=== PATIENT | male | born 1965 | race Caucasian/White ===

== ENCOUNTER → 2020-10-30 16:42 | Outpatient (CLI) | payer OTHER, SELFPAY ==
--- NOTE | 2020-10-30 | DI.MRI.S_ITS ---
PROCEDURE: MR SHOULDER RT WO CON INDICATIONS: Pain in right shoulder TECHNIQUE: Noncontrast oblique coronal T2 fast spin echo with fat saturation, oblique sagittal T1 spin echo and T2 fast spin echo with fat saturation, axial T1 spin echo and T2 fast spin echo with fat saturation through the shoulder. COMPARISON: [facility], , LEFT SHOULDER WITH CONTRAST, 03/02/2017, 13:23. FINDINGS: Image quality: Excellent. Rotator cuff: There is mild tendinopathy in the supraspinatus without a discrete tear. The infraspinatus also appears intact. There is also mild tendinopathy in the distal subscapularis with minimal partial tearing at its insertion. The teres minor appears intact. Sagittal images demonstrate no fatty muscle atrophy. Bones and bursae: No bone marrow contusions or fractures. There is moderate acromioclavicular joint degeneration including periarticular bone marrow edema in the distal clavicle. The acromion demonstrates slight lateral downsloping, without an os acromiale. Trace subacromial/subdeltoid bursal fluid is present. There is a small glenohumeral joint effusion. Capsule and soft tissues: There is mild degenerative tearing within the posterosuperior and posterior labrum as well as the anteroinferior labrum. The glenohumeral ligaments appear intact. The long head of the biceps tendon demonstrates normal location with mild segmental tendinopathy proximally.. The rotator interval appears normal, without fibrosis. The coracohumeral ligament is normal in thickness. IMPRESSION: 1. Mild tendinopathy in the distal subscapularis with minimal partial tearing at its insertion. Rotator cuff otherwise appears intact. 2. Moderate acromioclavicular joint degeneration with trace subacromial/subdeltoid bursal fluid. 3. Mild degenerative tearing in the labrum as described. Dictated by: Victor Manuel Gruber M.D. on 10/31/2020 at 9:33 Approved by: Victor Manuel Gruber M.D. on 10/31/2020 at 9:38
== END ==
PROVIDERS: Referring Provider Family Medicine; Visit Provider Family Medicine
DX: M25.511 Pain in right shoulder (principal); M19.011 Primary osteoarthritis, right shoulder; M75.111 Incomplete rotator cuff tear or rupture of right shoulder, not specified as traumatic; S43.491A Other sprain of right shoulder joint, initial encounter
CPT/HCPCS: 73221

== ENCOUNTER → 2020-12-18 09:14 | Outpatient (CLI) | payer OTHER, SELFPAY ==
[2020-12-18 12:11] LABS: COVID19 -Nasal RAPID Negative (Negative)
== END ==
PROVIDERS: Visit Provider Nurse Practitioner
DX: Z20.822 Contact with and (suspected) exposure to COVID-19 (principal)
CPT/HCPCS: 87635

== ENCOUNTER 2020-12-19 06:17 | Day surgery (SDC) | payer OTHER, SELFPAY ==
[2020-12-13 11:55] VITALS: BMI 27.3
[2020-12-19] VITALS (8 sets, daily range): BP systolic 120–142; BP diastolic 59–88; PULSE 60–73; RESP 14–22; TEMP 36.1–36.2; O2SAT 94–95; BMI 27.8
[2020-12-19] MEDS: CELECOXIB 200 MG CAPSULE 400 MG PO (06:55)
[2020-12-19] MEDS: ACETAMINOPHEN 325 MG TABLET 975 MG PO (06:55)
[2020-12-19] MEDS: GABAPENTIN 300 MG CAPSULE PO (06:55)
[2020-12-19] MEDS: LACTATED RINGERS 1,000 ML 42 ML IV (06:55)
--- NOTE | 2020-12-19 07:34 | PM.PREOP ---
Pre-operative Note Interval Note History & Physical reviewed/Exam performed by Physician: Yes Changes to H&P: No
--- NOTE | 2020-12-19 07:55 | SUR.PREOP ---
0740 -Monitoring initiated and maintained throughout procedure. Placed on 2LNC. Medications given per Dr Stahl. 0750 - Time out performed by Dr Stahl. 0753 - Injection time. 0754 - Block complete. Patient remained stable throughout procedure. No adverse reactions noted. see rhythm strips and VS strip.
--- NOTE | 2020-12-19 08:04 | PM.HP.1 ---
History of Present Illness History of Present Illness Date Patient Seen: 12/19/20 Time Patient Seen: 07:30 Chief complaint: SDC Narrative: 55-year-old gentleman with a long history of right shoulder pain that has been unresponsive to conservative treatment. Patient History Medical History Arthritis of right acromioclavicular joint Partial tear of right rotator cuff Subacromial impingement of right shoulder Tendinopathy of right shoulder Surgical History Hx of colonoscopy (07/29/15) Family & Social History Social History: household members spouse Tobacco & Substance use: Smoking Status Former smoker alcohol intake frequency a few times a month Substance Use Type does not use Meds Home Medications and Allergies Home Medications Medication Instructions Recorded Confirmed Type multivitamin 1 tab PO DAILY #0 03/11/12 12/19/20 History Allergies Allergy/AdvReac Type Severity Reaction Status Date / Time No Known Drug Allergies Allergy Verified 12/19/20 06:33 Exam Vital Signs (past 8 hours): - 12/19/20 06:39 12/19/20 06:55 Temperature 97.2 F L 97.2 F L Pulse Rate 66 Respiratory Rate 16 Blood Pressure 140/88 Pulse Oximetry 95 Oxygen Delivery Method Room Air Narrative Exam Narrative: Patient has difficulty with range of motion of the shoulder. Has pain going beyond 90?. Passively has full range of motion of the shoulder with no sign of any contractures. Patient has pain and weakness in supraspinatus strength testing. Positive impingement signs. Tender to palpation over the AC joint with signs of arthritic changes. No sign of any shoulder instability no sign of any proximal biceps pathology. Assessment & Plan Assessment & Plan narrative: Patient with right shoulder pain unresponsive to conservative treatment. Patient is interested in proceeding with an arthroscopic procedure to address the impingement, AC joint arthritis, as well as the rotator cuff partial tearing and pathology. Patient fully understands the risk and limitations associated with the surgery all of his questions and concerns for Mikayla were answered to his full satisfaction. Time Spent With Patient Time with patient: less than 15 minutes
[2020-12-19] MEDS: CEFAZOLIN 1 GM VIAL 2 GM IV (08:11)
--- NOTE | 2020-12-19 08:14 | PM.PROC.1 ---
Procedures Date/Time Date of procedure: 12/19/20 Time of procedure: 07:50 Nerve Block Time out performed: Yes Local anesthetic used: bupivacaine 0.5% Location of anesthetic used: RIGHT Amount of anesthesia used (mL): 13 Nerve blocks: brachial plexus (intrascalene) Procedure successful: Yes Patient tolerated procedure: well and no complications Complications: none Additional comments: Intrascalene block performed for post-op pain control at surgeon request. Patient was positioned with IV, O2, monitors and rescue meds available. Prepped and timeout performed. Target identified with continuous ultrasound guidance. 13mL of bupivicaine 0.5% was injected perineurally with intermittent aspiration and injection. No blood, no paresthesias, no acute complications.
--- NOTE | 2020-12-19 08:29 | SUR.OPER ---
Beach chair with Maquet shoulder positioner. Lower body on padded OR bed. Head in foam padded head cradle, secured with straps. Non-operative arm secured <90 degrees abduction. Pillow under knees. Safety belt at thigh. Cloth tape over blanket over lower legs.
[2020-12-19] MEDS: SODIUM CHLORIDE IRRIG SOLUTION 3,000 ML, EPINEPHrine 1 MG IRR (08:37)
[2020-12-19] MEDS: LIDOCAINE 1% W/EPI 20 ML INJ (08:38)
--- NOTE | 2020-12-19 09:43 | PM.OP.1 ---
Operative Date/Time/Diagnoses Date of procedure: 12/19/20 Time of procedure: 08:00 Pre-op diagnosis: Right shoulder impingement, AC joint arthritis, glenohumeral joint arthritis, partial rotator cuff tear Post-op diagnosis: same Procedure & Clinicians Procedure: Right shoulder subacromial decompression, extensive debridement, debridement of partial rotator cuff tear, distal clavicle excision Same procedure as scheduled: Yes Indications: Right shoulder impingement with partial rotator cuff tear with AC joint and glenohumeral joint arthritis Surgeon: Nico Hernandez Aircraft Mechanic Armament: Latoya Zamudio Anesthesia Type: General and Peripheral nerve block Operative Notes Findings: Significant loss of cartilage to the humeral head with full-thickness cartilage loss affecting more the posterior aspect of the humeral head. No sign of any full-thickness cartilage loss involving the glenoid. No sign of any significant articular surface partial tearing to the rotator cuff. Degenerative tearing throughout the labrum. No sign of any extension into the bicipital anchor or signs of proximal biceps tenosynovitis or tearing. Subscapularis free of any signs of articular sided tearing or fraying. No signs of any loose bodies. But some loose cartilage flaps coming off the humeral head. Subacromial space had a significant amount of bursitis and synovitis. Quite a bit of fraying throughout the entire rotator cuff but no sign of any high-grade partial tears or full-thickness tears. Large impingement lesions coming off the subacromial arch as well as AC joint arthritis. Closure Type: primary Specimen(s): none sent Estimated Blood Loss (mL): 5 Procedure in detail: On date of service, Patient was met in the holding area. The operative site was signed and witnessed by the OR staff. The surgeries once again discussed with the patient and any remaining questions they had were answered fully. Patient was taken back to the operating theater and placed on the operating table in a supine position. Great care was taken to ensure that all bony prominences were properly padded. Patient was then placed into the beach chair position. The head and neck were properly positioned and secured. A timeout was performed verifying patient's name, procedure, and the operative site. The upper extremity was then prepped and draped in the normal sterile fashion. Previously, the bony anatomy and portal sites were marked out as well as injected with Marcaine with epinephrine. An 11 blade was used to make an incision in the posterior aspect of the shoulder. The camera was placed, and a diagnostic shoulder scope was performed. Findings listed above. Next under direct visualization, a anterior portal was made. Shaver was placed into the anterior portal and a extensive debridement of the glenohumeral joint was performed. Shaver was used to debride the degenerative changes throughout the labrum as well as a type 1 slap tear. Shaver was used to remove some of the loose cartilage flaps coming off the posterior aspect of the humeral head. Also used to debride the area of full-thickness cartilage loss in order to encourage healing of that bare area. Next the camera was placed into the subacromial space. A lateral portal was obtained under direct visualization. A combination of the shaver and vapor wand, a debridement of the inflamed tissue as well as inflamed bursa was performed. The lateral gutter was also cleaned out. This gave us good visualization of the bursal aspect of the rotator cuff as well as the acromial arch. There was an obvious impingement lesion in the acromial arch. Next we turned our attention to the subacromial decompression. Next, a alon was then used to do a subacromial decompression. This allowed us to convert the acromion to a type I acromial. This also allowed us to shave down the bony lesion in the acromial space. The rasp was placed into the lateral portal as well as the anterior portal in order to do a complete subacromial decompression. We next turned our attention to the distal clavicle. Using the shaver and the vapor wand we were able to clean out all the soft tissue around the distal clavicle as well as into the a.c. joint. This gave us good visualization of the arthritic changes to the distal clavicle as well as good visualization of the inferior osteophytes coming off the distal clavicle. Using the alon in the anterior portal, we were able to remove the inferior osteophytes as well as do a distal clavicle excision removing 3-4 mm of bone. The camera was then placed into the anterior portal which gave us a direct visualization of the a.c. joint allowing us to assess the distal clavicle excision. We then turned our attention to the rotator cuff tear. Shaver was used to debride once again any fraying or partial tearing to the bursal aspect of the rotator cuff. Also used to remove any remaining synovitis and inflamed bursal tissue. The shoulder was then taken through range of motion and there was no sign of any additional impingement. Patient's shoulder was then cleaned dried and dressed and patient was taken to the PACU in stable condition. Post-operative Condition: stable Disposition: PACU Plan for aftercare: Patient will be discharged home in the sling. Sling is just for comfort. No restrictions of range of motion
[2020-12-19] MEDS: ONDANSETRON 4 MG/2 ML INJ IV (09:47)
--- NOTE | 2020-12-19 09:48 | SUR.PHASEI ---
Received to PACU after general anesthesia. Airway patent, self maintained. Report from RUTHY Carty and Dr Stahl.
== END 2020-12-19 10:42 | disposition home or self-care (01) ==
PROVIDERS: PCP Family Medicine; Referring Provider Orthopaedic Surgery; Visit Provider Orthopaedic Surgery
PROC: (CPT 29805; principal; 2020-12-19 07:45)
DX: M75.41 Impingement syndrome of right shoulder (principal); M19.011 Primary osteoarthritis, right shoulder; M75.111 Incomplete rotator cuff tear or rupture of right shoulder, not specified as traumatic; M75.51 Bursitis of right shoulder; M65.811 Other synovitis and tenosynovitis, right shoulder; S43.431A Superior glenoid labrum lesion of right shoulder, initial encounter; K21.9 Gastro-esophageal reflux disease without esophagitis; M25.711 Osteophyte, right shoulder
CPT/HCPCS: 29823; 29824; 29826; 64450; J0171; J0330; J0690; J1100; J2250; J2405; J2704; J3010

== ENCOUNTER → 2021-06-26 11:58 | Outpatient (CLI) | payer OTHER, SELFPAY ==
--- NOTE | 2021-06-26 | DI.ECHO.S_ITS ---
[facility] +---------+ : : [address] [place] : : : : [id number] : : : : Phone: [phone]+ Echocardiogram Report + + :Name: ELIESER ESCOBEDO Study Date: 06/26/2021 Height: 67.5 in: :[facility] ReadingLocation: Weight: 180 lb : : Gender: Male BSA: 1.9 m2 : :: 1965 Age: 56 yrs BP: 133/88 mmHg: :Reason For Study: Chest pain : :Ordering Physician: : :MIGUEL Performed By: Dayton Perez : :Referring: DANK HENDRIX : + + Interpretation Summary 1) Normal left ventricular size, thickness, and systolic function (EF 60-65%). 2) There are no obvious focal wall motion abnormalities noted but poor endocardial definition reduces the sensitivity for the detection of such. 3) Normal right ventricular size and function. 4) No significant valvular abnormalities. 5) Compared to the Echo done 05/28/2016, no significant change. Procedure: A two-dimensional transthoracic echocardiogram with color flow and Doppler was performed. The study quality was technically adequate. The subcostal views were difficult to obtain and are suboptimal in quality. Comparison is made with the echocardiogram of 05/28/2016. The patient was in normal sinus rhythm during the exam. Left Ventricle: The left ventricle is normal in size and wall thickness. The ejection fraction is estimated to be 60-65%. There are no obvious focal wall motion abnormalities noted but poor endocardial definition reduces the sensitivity for the detection of such. Right Ventricle: The right ventricle is normal in size and function. Atria: Both atria are normal in size. Mitral Valve: The mitral valve leaflets appear borderline thickened, but open well. There is trace mitral regurgitation. Aortic Valve: The aortic valve is trileaflet. The aortic valve opens well. There is no aortic valve stenosis. There is trace aortic regurgitation. Tricuspid Valve: The tricuspid valve is normal. There is a trace or physiologic amount of tricuspid regurgitation. Pulmonary artery pressures cannot be estimated because of the lack of a measurable TR jet velocity but the IVC suggests a CVP of around 3 mmHg. Pulmonic Valve: The pulmonic valve leaflets are thin and pliable; valve motion is normal. There is trace pulmonic regurgitation. Great Vessels: The aortic root is normal size. The ascending aorta is normal in size. The aortic arch is normal in size. The IVC is of normal diameter and collapses greater than 50% with a sniff. This suggests a low right atrial pressure of 3 mm Hg. Pericardium/ Pleura There is no pericardial effusion. There is no pleural effusion. MMode/2D Measurements & Calculations LVIDd: 4.7 cm LVOT diam: 1.8 cm LVIDs: 2.7 cm Ao root diam: 2.8 cm FS: 42.6 % asc Aorta Diam: 3.4 cm IVSd: 0.70 cm Ao Arch Diam (Prox Trans): 2.3 cm LVPWd: 0.90 cm LV lawson. diameter/BSA (cm/m^2): 2.4 LV sys. diameter/BSA (cm/m^2): 1.4 LA A2 area: 18.6 cm2 RA long axis: 5.2 cm LA A4 area: 12.7 cm2 IVC diam: 1.4 cm LA length (vol): 5.9 cm LA vol: 33.9 ml LA vol index: 17.4 ml/m2 LVLs ap4: 5.8 cm LVLd ap2: 7.5 cm LVLs ap2: 5.7 cm TAPSE_phl: 2.7 cm Doppler Measurements & Calculations Ao V2 max: 119.0 cm/sec LVOT Max Jassi: 127.0 cm/sec Ao V2 mean: 77.2 cm/sec LV V1 max P.5 mmHg Ao max P.0 mmHg LV V1 VTI: 25.1 cm Ao mean P.0 mmHg HERMINIO(I,D): 2.7 cm2 Ao V2 VTI: 23.6 cm HERMINIO(V,D): 2.7 cm2 sev ratio: 1.1 HERMINIO indexed to BSA (cm^2/m^2): 1.4 MV E max jassi: 61.8 cm/sec SV(LVOT): 63.9 ml MV A max jassi: 52.5 cm/sec MV E/A: 1.2 Med Peak E' Jassi: 8.6 cm/sec E/E' med: 7.2 Lat Peak E' Jassi: 11.6 cm/sec E/E' lat: 5.3 E/e' average: 6.3 MV dec time: 0.13 sec AV VR_phl: 1.1 MV P1/2t-pr_phl: 39.0 msec HERMINIO(VTI)/BSA_phl: 1.4 Reading Physician:04:12 PM
== END ==
PROVIDERS: PCP Family Medicine; Referring Provider Family Medicine; Visit Provider Family Medicine
DX: R07.9 Chest pain, unspecified (principal)
CPT/HCPCS: 93306

== ENCOUNTER → 2024-10-05 07:46 | Outpatient (CLI) | payer OTHER, SELFPAY ==
--- NOTE | 2024-10-05 07:48 | DI.MRI.S_ITS ---
PROCEDURE: MR SHOULDER LT WO CON INDICATIONS: IMPINGEMENT LT SHOULDER TECHNIQUE: Noncontrast oblique coronal T2 fast spin echo with fat saturation, oblique sagittal T1 spin echo and T2 fast spin echo with fat saturation, axial T1 spin echo and T2 fast spin echo with fat saturation through the shoulder. COMPARISON: None. FINDINGS: Image quality: Excellent. Rotator cuff: Low-grade articular surface partial-thickness tear involving distal supraspinatus at its insertion on the humeral head is seen. Distal infraspinatus and subscapularis tendinosis is seen. No full-thickness rotator cuff tendon rupture. Sagittal images demonstrate no significant rotator cuff muscle atrophy. Bones and bursae: No bone marrow contusions or fractures. Oizs-ko-yimsnhih acromioclavicular joint osteoarthritic changes are seen with joint space narrowing and downward osteophyte formation depressing on musculotendinous junction of supraspinatus. Type 1 acromion without an os acromiale. Small amount of joint fluid and subacromial subdeltoid bursal fluid is seen , no intra-articular loose bodies. Capsule and soft tissues: Subtle fraying of superior anterior glenoid labrum with T2 hyperintense signal suggestive of subtle superior anterior labral tear. The long head of the biceps tendon demonstrates normal location and morphology. The rotator interval appears normal, without fibrosis. The coracohumeral ligament is normal in thickness. IMPRESSION: 1. Low-grade articular surface partial-thickness tear involving distal supraspinatus. Distal infraspinatus and subscapularis tendinosis. No full-thickness rotator cuff tendon rupture. No significant rotator cuff muscle atrophy. 2. Aqpi-ac-hycxyzun acromioclavicular joint osteoarthritis. No fracture or dislocation. Small amount of joint effusion and subacromial subdeltoid bursal fluid. No intra-articular loose bodies. 3. Suggestion of subtle superior anterior glenoid labral tear. Dictated by: Aaron Craig M.D. on 10/05/2024 at 9:49 Approved by: Aaron Craig M.D. on 10/05/2024 at 9:53
== END ==
PROVIDERS: Referring Provider Family Medicine; Visit Provider Family Medicine
DX: M75.112 Incomplete rotator cuff tear or rupture of left shoulder, not specified as traumatic (principal); M19.012 Primary osteoarthritis, left shoulder; M75.42 Impingement syndrome of left shoulder; M25.512 Pain in left shoulder
CPT/HCPCS: 73221

== ENCOUNTER → 2024-12-08 09:56 | Outpatient (CLI) | payer OTHER, SELFPAY ==
--- NOTE | 2024-12-08 09:57 | DI.CT.S_ITS ---
PROCEDURE: CT IVP A/P W/WO INDICATIONS: calculus of kidney TECHNIQUE: Optional 5 mm thick noncontrast images acquired from the diaphragm to the symphysis pubis. After the administration of intravenous contrast, 5 mm thick images acquired from the diaphragm to the symphysis pubis after a 10-minute delay. 2 mm thick coronal and sagittal reformats were then performed of the kidneys and ureters. For radiation dose reduction, the following was used: automated exposure control, adjustment of mA and/or kV according to patient size. COMPARISON: [facility], CT, CT KUB, 12/12/2021, 9:24. FINDINGS: Image quality: Diagnostic. Kidneys and Ureters: Both kidneys are normal in size, without hydronephrosis or nephrolithiasis. No perinephric fat stranding. There is normal bilateral renal enhancement. Renal calyces appear normal in morphology when filled with contrast. Opacified portions of both ureters demonstrate normal caliber. There is a 3 mm stone in the lower pole of the right renal pelvis as well as a punctate nephrolith in the interpolar region, new. Bladder: Bladder wall thickness is normal. No calcified bladder stones. OTHER: Lower chest: Unremarkable. Liver: No solid mass. Gallbladder: No radiopaque gallstones or wall thickening. Biliary ducts: No biliary dilation. Pancreas: No ductal dilation. Spleen: Size is within normal limits. Adrenal Glands: No adrenal nodules. Stomach and Bowel: Normal colonic caliber, without significant wall thickening. Peritoneum: No abnormal intraperitoneal fluid. No free air. Ventral Wall: No hernia. Abdominal Nodes: No retroperitoneal or mesenteric adenopathy by size criteria. Vessels: Aorta and inferior vena cava are normal in size. PELVIS: Pelvic Organs: Prostate measures 4.1 x 3.9 x 3.45 cm, with nodular prominence into the bladder base. Pelvic Nodes: No enlarged lymph nodes. Miscellaneous: No inguinal hernias are seen. Bones: No aggressive osseous abnormality. IMPRESSION: 1. Small nonobstructing calculi in the right renal pelvis, appear more prominent. No ureteral calculi or signs of obstructive uropathy. 2. No suspicious focal lesion in the kidneys and upper tracts. Dictated by: Kalia Mendiola M.D. on 12/09/2024 at 14:48 Approved by: Kalia Mendiola M.D. on 12/09/2024 at 14:55
== END ==
LOC: CT 09:57
PROVIDERS: Referring Provider Family Medicine; Visit Provider Family Medicine
DX: N20.0 Calculus of kidney (principal); R10.31 Right lower quadrant pain
CPT/HCPCS: 74178; Q9967